=== PATIENT | female | born 1955 | race Caucasian/White ===

== ENCOUNTER 2016-08-06 22:11 | Emergency (ER) | payer MEDICARE, MEDICAID ==
[~2016-08-06] VITALS: Ht 154.9 cm; Wt 70.8 kg
[~2016-08-06 22:11] MED LIST: ARIP30TA PO; ASPI81TA2 PO; BACL10TA PO; BENZ1TAB5 PO; CETI10CA PO; CHLO200T2 PO; CLON0.5T PO; CLON0.5T3 PO; CYAN250012 PO; DEXT1DRO7 OP; DIPH25CA58 PO; DULO60CA6 PO; EZET10TA3 PO; FENO67CA PO; FLUT9.9S NS; FURO-68 PO; FURO80TA72 PO; GABA-586 PO; GLUC1TAB33 PO; HYDR-2762 PO; HYDR28OI2 TP; INSU100I17 SQ; INSU100V13 SQ; LACT1CAP2 PO; LINA145C PO; MAGN400O4 PO; MENT1ADH39 TP; MULT1CAP15 PO; NICO4GUM3 BC; NITR0.4T6 SL; NYST1POW2 PO; OMEG500C PO; POTA20TA82 PO; SENN1TAB7 PO; SIMV20TA PO; TOPI100T39 PO; TRAM50TA PO; TRAZ100T12 PO; ZIPR20CA2 PO; ZIPR80CA2 PO
[2016-08-06 23:32] LABS: BASO # 0.1 x10^3/uL (0.0-0.2); BASO % 1 % (0-3); EOS % 2 % (0-3); HEMATOCRIT 34.7 % (36.0-47.0); HEMOGLOBIN 11.7 g/dL (12.0-15.5); LYMPH # 2.9 x10^3/uL (1.0-4.8); LYMPH % 44 % (24-48); MEAN CORPUSCULAR HEMOGLOBIN 34 pg (25-35); MEAN CORPUSCULAR HGB CONC 34 g/dL (31-37); MEAN CORPUSCULAR VOLUME 101 fL (79-100); MONO % 7 % (0-9); NEUT % 46 % (31-73); PLATELET COUNT 173 x10^3/uL (140-400); RED BLOOD COUNT 3.44 x10^6/uL (3.50-5.40); RED CELL DISTRIBUTION WIDTH 13.1 % (11.5-14.5); WHITE BLOOD COUNT 6.6 x10^3/uL (4.0-11.0)
[2016-08-06 23:42] LABS: CALCIUM 9.6 mg/dL (8.5-10.1); CREATININE 1.1 mg/dL (0.6-1.0); GFR 50.3; POTASSIUM 4.3 mmol/L (3.5-5.1)
[2016-08-06 23:48] LABS: ALBUMIN 3.9 g/dL (3.4-5.0); TOTAL BILIRUBIN 0.5 mg/dL (0.2-1.0); TOTAL PROTEIN 7.7 g/dL (6.4-8.2)
--- NOTE | 2016-08-07 00:01 | RAD ---
INDICATION: Altered mental status COMPARISON: April 18, 2016 TECHNIQUE: Axial, noncontrast CT images obtained through the head. One or more of the following individualized dose reduction techniques were utilized for this examination: 1. Automated exposure control; 2. Adjustment of the mA and/or kV according to patient size; 3. Use of iterative reconstruction technique. FINDINGS: No acute intracranial process is identified, specifically no acute blood products, midline shift, mass effect or extra-axial fluid collections. There is a large area of low attenuation consistent with encephalomalacia with resulting ex vacuo dilatation of the right lateral ventricle re- demonstrated, consistent with previous right MCA distribution infarct. Basal ganglia mineralization is re- demonstrated. Otherwise, ventricles and sulci appear appropriate for patient's age. Basilar cisterns are maintained. The visualized paranasal sinuses are clear. Mastoid air cells are clear. No calvarial fracture is present. Overlying scalp is intact. IMPRESSION: No acute intracranial process. Re- demonstrated old right MCA distribution infarct. Electronically signed by: Penny Paris (Aug 06, 2016 23:59:59)
[2016-08-07 00:28] LABS: BILIRUBIN,URINE NEGATIVE (NEG); GLUCOSE,URINE NEGATIVE (NEG); NITRITE,URINE POSITIVE (NEG); PROTEIN,URINE NEGATIVE (NEG-TRACE); UROBILINOGEN,URINE 0.2 mg/dL (0.2 mg/dL)
[2016-08-07 00:33] LABS: BACTERIA,URINE MANY /HPF (0-FEW); RBC,URINE 0 /HPF (0-2); SQUAMOUS EPITHELIAL CELL,UR FEW /LPF
[2016-08-07 00:34] LABS: BARBITURATES NEG (NEG); BENZODIAZEPINES NEG (NEG); CANNABINOIDS NEG (NEG); COCAINE NEG (NEG); METHADONE NEG (NEG); OPIATES POS (NEG); PHENCYCLIDINE NEG (NEG)
[2016-08-07 00:35] LABS: ETHANOL, URINE NEG (NEG)
[2016-08-07] MEDS ORDERED: CEPHALEXIN 250 MG CAPSULE PO ONE (01:00)
[2016-08-07] MEDS ORDERED: CEPH-264 PO (01:46)
--- NOTE | 2016-08-07 02:10 | ED.ADGEN ---
Past Medical History Past Medical History: Anemia, Anxiety, CHF, Constipation, CVA, Depression, Diabetes-Type II, Hypertension, Schizophrenia Additional Past Medical Histor: CHRONIC PAIN SYNDROME , NEUROPATHY, LEFT SIDED PARALYSIS, Past Surgical History: No Surgical History Additional Information: 4 CIGARETTES A DAY Alcohol Use: Rarely Drug Use: None Adult General Chief Complaint Chief Complaint: ALTERED MENTAL STATUS HPI HPI Patient is a 61 year old woman, history of CHF, hypertension, COPD, schizophrenia, who presents to the emergency department via EMS with a complaint of chest pain that developed this morning after swallowing pills. Upon initial arrival, patient was very drowsy, report was given from EMS that the patient had been taking her pills early this morning, and had developed chest pain after taking pills. We did contact the nursing facility, as the patient was initially having difficulty giving us a history, and there was a concern for altered mental status. Patient is denying all complaints, but is falling asleep midsentence, and is unable to give history at this time. Vital signs are within normal limits on the monitor. Review of Systems Review of Systems Constitutional: Denies fever or chills. [] Eyes: Denies change in visual acuity. [] HENT: Denies nasal congestion or sore throat. [] Respiratory: Denies cough or shortness of breath. [] Cardiovascular: Denies chest pain or edema. [] GI: Denies abdominal pain, nausea, vomiting, bloody stools or diarrhea. [] : Denies dysuria. [] Musculoskeletal: Denies back pain or joint pain. [] Integument: Denies rash. [] Neurologic: Denies headache, focal weakness or sensory changes. [] Endocrine: Denies polyuria or polydipsia. [] Lymphatic: Denies swollen glands. [] Psychiatric: Denies depression or anxiety. [] Patient is denying all complaints, is a limited historian at this time, due to clinical condition. Current Medications Current Medications Current Medications Medications (Trade) Dose Ordered Sig/[place] Start Time Stop Time Status Last Admin Dose Admin Cephalexin HCl (Keflex) 500 mg 1X ONCE 08/07/16 01:00 08/07/16 01:01 DC 08/07/16 01:00 500 MG Allergies Allergies Allergies Coded Allergies Type Severity Reaction Last Updated Verified carbamazepine Allergy Intermediate 07/17/16 Yes diphtheria toxoid,fluid Allergy Intermediate 12/18/16 Yes Physical Exam Physical Exam Constitutional: Well developed, well nourished, no acute distress, non-toxic appearance. [] HENT: Normocephalic, atraumatic, bilateral external ears normal, oropharynx moist, no oral exudates, nose normal. [] Eyes: PERRLA, EOMI, conjunctiva normal, no discharge. [] Neck: Normal range of motion, no tenderness, supple, no stridor. [] Cardiovascular:Heart rate regular rhythm, no murmur, S1, S2, rubs or gallops. [] Lungs & Thorax: Bilateral breath sounds clear to auscultation, no wheezing, rhonchi, rales. No chest tenderness or crepitus. [] Abdomen: Bowel sounds normal, soft, no tenderness, no masses, no rebound, rigidity, no guarding, no pulsatile masses. [] Skin: Warm, dry, no erythema, no rash. [] Back: No tenderness, no CVA tenderness. [] Extremities: No tenderness, no cyanosis, no clubbing, ROM intact, no edema. [] Neurologic: Initial examination, patient was very drowsy, falling asleep midsentence, able to answer questions appropriately. On reevaluation, alert and oriented X 3, normal motor function, normal sensory function, no focal deficits noted. [] Psychologic: Affect normal, judgement normal, mood normal. [] Current Patient Data Vital Signs Vital Signs Date Time Temp Pulse Resp B/P Pulse Ox O2 Delivery O2 Flow Rate FiO2 08/06/16 22:15 98.3 76 15 91/52 94 Room Air 98.3 Lab Values Laboratory Tests Test 08/06/16 23:25 08/07/16 00:15 White Blood Count 6.6x10^3/uL (4.0-11.0) Red Blood Count 3.44x10^6/uL (3.50-5.40) L Hemoglobin 11.7g/dL (12.0-15.5) L Hematocrit 34.7% (36.0-47.0) L Mean Corpuscular Volume 101fL (79-100) H Mean Corpuscular Hemoglobin 34pg (25-35) Mean Corpuscular Hemoglobin Concent 34g/dL (31-37) Red Cell Distribution Width 13.1% (11.5-14.5) Platelet Count 173x10^3/uL (140-400) Neutrophils (%) (Auto) 46% (31-73) Lymphocytes (%) (Auto) 44% (24-48) Monocytes (%) (Auto) 7% (0-9) Eosinophils (%) (Auto) 2% (0-3) Basophils (%) (Auto) 1% (0-3) Neutrophils # (Auto) 3.0x10^3uL (1.8-7.7) Lymphocytes # (Auto) 2.9x10^3/uL (1.0-4.8) Monocytes # (Auto) 0.5x10^3/uL (0.0-1.1) Eosinophils # (Auto) 0.1x10^3/uL (0.0-0.7) Basophils # (Auto) 0.1x10^3/uL (0.0-0.2) Sodium Level 140mmol/L (136-145) Potassium Level 4.3mmol/L (3.5-5.1) Chloride Level 103mmol/L (98-107) Carbon Dioxide Level 29mmol/L (21-32) Anion Gap 8 (6-14) Blood Urea Nitrogen 17mg/dL (7-20) Creatinine 1.1mg/dL (0.6-1.0) H Estimated GFR (Cockcroft-Gault) 50.3 BUN/Creatinine Ratio 15 (6-20) Glucose Level 162mg/dL (70-99) H Calcium Level 9.6mg/dL (8.5-10.1) Total Bilirubin 0.5mg/dL (0.2-1.0) Aspartate Amino Transferase (AST) 60U/L (15-37) H Alanine Aminotransferase (ALT) 56U/L (14-59) Alkaline Phosphatase 76U/L (46-116) Troponin I Quantitative < 0.017ng/mL (0.000-0.055) NZ-Jxc-Y-Type Natriuretic Peptide 18pg/mL (0-124) Total Protein 7.7g/dL (6.4-8.2) Albumin 3.9g/dL (3.4-5.0) Albumin/Globulin Ratio 1.0 (1.0-1.7) Urine Collection Type U cath Urine Color Yellow Urine Clarity Clear Urine pH 6.0 Urine Specific [place] 1.010 Urine Protein Negativemg/dL (NEG-TRACE) Urine Glucose (UA) Negativemg/dL (NEG) Urine Ketones (Stick) Negativemg/dL (NEG) Urine Blood Negative (NEG) Urine Nitrite Positive (NEG) Urine Bilirubin Negative (NEG) Urine Urobilinogen Dipstick 0.2mg/dL (0.2 mg/dL) Urine Leukocyte Esterase Moderate (NEG) Urine RBC 0/HPF (0-2) Urine WBC 5-10/HPF (0-4) Urine Squamous Epithelial Cells Few/LPF Urine Bacteria Many/HPF (0-FEW) Urine Mucus Slight/LPF Urine Opiates Screen Pos (NEG) Urine Methadone Screen Neg (NEG) Urine Barbiturates Neg (NEG) Urine Phencyclidine Screen Neg (NEG) Urine Amphetamine/Methamphetamine Neg (NEG) Urine Benzodiazepines Screen Neg (NEG) Urine Cocaine Screen Neg (NEG) Urine Cannabinoids Screen Neg (NEG) Urine Ethyl Alcohol Neg (NEG) Laboratory Tests 08/06/16 23:25 Laboratory Tests 08/06/16 23:25 EKG EKG EC19/09/49: Sinus rhythm, heart rate 71 beats minute, upright axis, QTC of 477 , [place] 162, QRS of 86, no ST elevations or depressions, moderate baseline artifact noted. As interpreted by me. [] Radiology/Procedures Radiology/Procedures Chest x-ray: One view: Normal cardiopulmonary silhouette, no infiltrates or effusions, no soft tissue or bone normalities identified. As interpreted by me. Course & Med Decision Making Course & Med Decision Making Pertinent Labs and Imaging studies reviewed. (See chart for details) Due to concern of possible altered mental status, as the report from the nursing facility was unclear, as we are attempting to reach the facility to gather more information, CT of the head was obtained to rule out possible acute change in patient's mentation. We did reach the patient's nurse it was reported that point that the patient had been given her nighttime oxycodone, Klonopin, and baclofen shortly before arrival in the ED, which was likely the cause of her drowsiness. Upon return from CT, patient is much more awake and alert, she is complaining of burning with urination that began yesterday, some frequency and urgency, and states that she did indeed swallow a pill this morning, and when she was drinking the water with a pill "it was like a bubble was in my chest, and it really hurt". She has had some soreness since this time, especially with deep inspiration, but is denying any associated symptoms. Patient noted to have urinary tract infection in the ED, consistent with her symptoms, was given a first dose of Keflex in the ED which she swallowed without issue. Repeat x-ray was obtained, as initial x-rays performed during her initial drowsy state, patient is now sitting upright, is in a 4, and fully cooperative with examination and history. I did contact Junie Thomas, the nurse practitioner on-call for Dr. Dowling, the patient's vision at the nursing facility. I relayed the history and presentation for the patient, and that at this time I believe the patient would be very appropriate for return to the facility, and I will send her with a prescription for Keflex. Ms. he agreed, she stated that Dr. Dowling with see the patient at the nursing facility in the next day or 2, and the patient will return to the ED for evaluation if concerning symptoms develop. Patient is agreeable to this plan, and is anxious discharged home, ambulance transport arranged for patient. Dragon Disclaimer Dragon Disclaimer This electronic medical record was generated, in whole or in part, using a voice recognition dictation system. Departure Impression: Primary Impression: Urinary tract infection Disposition: 01 HOME, SELF-CARE Condition: IMPROVED Scripts Cephalexin (Keflex)500 Mg Capsule1 Cap PO BID #10 CAP Prov:GABRIEL PHELAN DO 08/07/16 Problem Qualifiers Primary Impression: Urinary tract infection Urinary tract infection type: acute cystitis Hematuria presence: without hematuria Qualified Code: N30.00 - Acute cystitis without hematuria GABRIEL PHELAN DO Aug 07, 2016 02:10
[2016-08-07 02:20] VITALS: BP 95/53
--- NOTE | 2016-08-07 08:17 | RAD ---
AP portable chest. History: Chest pain, hypertension, CHF, diabetes AP view was taken of the chest. Heart is upper normal in size. There is linear atelectasis in both lung bases. There is no effusion. There is mild interstitial lung disease from mild fibrosis or acute interstitial infiltrates. There's been worsening in the pattern compared to March 2016. Impression: 1. Poor inspiration. 2. Linear atelectasis or infiltrate in both lower lobes. 3. Interstitial lung disease with mild worsening compared to the prior study.
--- NOTE | 2016-08-07 08:29 | EKG ---
[facility] [address] [place] [address] Test Date: 2016-08-06 Test Time: 22:50:36 Pat Name: MADDI BO Department: Room: Gender: F Corrections Nurse: : [id number] Requested By: Kallie BO Order Number: [id number] Reading MD: Christine Garcia Measurements Intervals [place] Rate: 71 P: 22 LA: 162 QRS: 28 QRSD: 86 T: 42 QT: 434 QTc: 477 Interpretive Statements SINUS RHYTHM NORMAL EKG Electronically Signed On 08-10-2016 23:18:24 HISTORIOGRAPHER by Christine Garcia
--- NOTE | 2016-08-09 17:58 | VNOTE ---
CALL BACK NOTE CALL BACK Microbiology 08/07/16 Urine Culture - Final, Complete 08/07/16 Urine Culture Result 1 (TED) - Final, Complete 08/07/16 Antimicrobic Susceptibility - Final, Complete The patient's urine culture was positive for greater than 100,000 CFU per mL of enterococcus faecalis. She was initially prescribed Keflex for her UTI, however this is not effective given the organism grown. The patient is currently a resident at [facility]. I spoke with the nurse caring for the patient, Ying. The culture result was faxed to the facility at [phone]. The attending physician at the facility will make the appropriate antibiotic change. GABRIEL PATEL Aug 09, 2016 17:58
== END 2016-08-07 02:40 | disposition home or self-care (01) ==
LOC: ER 22:11
DX: N39.0 Urinary tract infection, site not specified (principal); E11.40 Type 2 diabetes mellitus with diabetic neuropathy, unspecified; F20.9 Schizophrenia, unspecified; F41.9 Anxiety disorder, unspecified; I11.0 Hypertensive heart disease with heart failure; I50.9 Heart failure, unspecified; G89.4 Chronic pain syndrome; J84.9 Interstitial pulmonary disease, unspecified; R41.82 Altered mental status, unspecified; J44.9 Chronic obstructive pulmonary disease, unspecified; Z86.73 Personal history of transient ischemic attack (TIA), and cerebral infarction without residual deficits; F17.210 Nicotine dependence, cigarettes, uncomplicated; Z88.8 Allergy status to other drugs, medicaments and biological substances
CPT/HCPCS: 36415; 70450; 71010; 80053; 81001; 83880; 84484; 85027; 87086; 93005; 99285; G0481

== ENCOUNTER 2017-11-03 15:32 | Emergency (ER) | payer MEDICARE, MEDICAID ==
[2017-11-03 16:29] LABS: ADD MAN DIFF? NO
[2017-11-03 16:31] LABS: BASO % 1 % (0-3); EOS # 0.1 x10^3/uL (0.0-0.7); EOS % 2 % (0-3); HEMATOCRIT 35.1 % (36.0-47.0); HEMOGLOBIN 11.7 g/dL (12.0-15.5); LYMPH # 2.8 x10^3/uL (1.0-4.8); LYMPH % 49 % (24-48); MEAN CORPUSCULAR HEMOGLOBIN 34 pg (25-35); MEAN CORPUSCULAR HGB CONC 33 g/dL (31-37); MEAN CORPUSCULAR VOLUME 101 fL (79-100); MONO # 0.5 x10^3/uL (0.0-1.1); MONO % 8 % (0-9); NEUT # 2.3 x10^3uL (1.8-7.7); NEUT % 40 % (31-73); PLATELET COUNT 161 x10^3/uL (140-400); RED BLOOD COUNT 3.48 x10^6/uL (3.50-5.40); RED CELL DISTRIBUTION WIDTH 13.3 % (11.5-14.5); WHITE BLOOD COUNT 5.7 x10^3/uL (4.0-11.0)
[2017-11-03 16:32] LABS: BILIRUBIN,URINE NEGATIVE (NEG); CLARITY,URINE CLEAR; COLOR,URINE YELLOW; GLUCOSE,URINE NEGATIVE (NEG); NITRITE,URINE POSITIVE (NEG); PH,URINE 5.5; PROTEIN,URINE NEGATIVE (NEG-TRACE); UROBILINOGEN,URINE 0.2 mg/dL (0.2 mg/dL)
[2017-11-03 16:44] LABS: ANION GAP 10 (6-14); BLOOD UREA NITROGEN 17 mg/dL (7-20); BUN/CREATININE RATIO 15 (6-20); CALCIUM 8.8 mg/dL (8.5-10.1); CARBON DIOXIDE 30 mmol/L (21-32); CHLORIDE 103 mmol/L (98-107); CREATININE 1.1 mg/dL (0.6-1.0); GFR 50.2; GLUCOSE 225 mg/dL (70-99); POTASSIUM 3.5 mmol/L (3.5-5.1); SODIUM 143 mmol/L (136-145)
[2017-11-03 16:47] LABS: BACTERIA,URINE MANY /HPF (0-FEW); RBC,URINE 0 /HPF (0-2); SQUAMOUS EPITHELIAL CELL,UR FEW /LPF
[2017-11-03 16:48] LABS: HYALINE CASTS, URINE OCCASIONAL /HPF
[2017-11-03 16:49] LABS: ALBUMIN 3.7 g/dL (3.4-5.0); ALBUMIN/GLOBULIN RATIO 0.9 (1.0-1.7); ALK PHOS 114 U/L (46-116); ALT (SGPT) 51 U/L (14-59); AST (SGOT) 80 U/L (15-37); TOTAL BILIRUBIN 0.5 mg/dL (0.2-1.0); TOTAL PROTEIN 7.8 g/dL (6.4-8.2)
[2017-11-03 16:50] LABS: TROPONINI < 0.017 ng/mL (0.000-0.055)
[2017-11-03] MEDS: CEPHALEXIN 250 MG CAPSULE. PO (20:06)
== END 2017-11-03 21:07 | disposition home or self-care (01) ==
LOC: ER 15:32
DX: N39.0 Urinary tract infection, site not specified (principal); M25.512 Pain in left shoulder; M25.572 Pain in left ankle and joints of left foot; M79.605 Pain in left leg; M54.2 Cervicalgia; M25.552 Pain in left hip; I11.0 Hypertensive heart disease with heart failure; I50.9 Heart failure, unspecified; E11.40 Type 2 diabetes mellitus with diabetic neuropathy, unspecified; F20.9 Schizophrenia, unspecified; E78.5 Hyperlipidemia, unspecified; G89.29 Other chronic pain; Z86.73 Personal history of transient ischemic attack (TIA), and cerebral infarction without residual deficits; Z88.8 Allergy status to other drugs, medicaments and biological substances; W18.39XA Other fall on same level, initial encounter; Y93.89 Activity, other specified; Y99.8 Other external cause status; Y92.89 Other specified places as the place of occurrence of the external cause
CPT/HCPCS: 36415; 51701; 70450; 71045; 72125; 73030; 73521; 73562; 73590; 73610; 80053; 81001; 84484; 85025; 87086; 87186; 93005; 99285-25

== ENCOUNTER 2017-11-25 18:04 | Inpatient (IN) | payer MEDICARE, MEDICAID ==
[2017-11-25 18:39] LABS: ADD MAN DIFF? NO
[2017-11-25 18:45] LABS: BASO % 1 % (0-3); BILIRUBIN,URINE NEGATIVE (NEG); CLARITY,URINE CLEAR; COLOR,URINE YELLOW; EOS # 0.2 x10^3/uL (0.0-0.7); EOS % 2 % (0-3); GLUCOSE,URINE NEGATIVE (NEG); HEMATOCRIT 37.2 % (36.0-47.0); HEMOGLOBIN 12.7 g/dL (12.0-15.5); LYMPH # 3.8 x10^3/uL (1.0-4.8); LYMPH % 56 % (24-48); MEAN CORPUSCULAR HEMOGLOBIN 35 pg (25-35); MEAN CORPUSCULAR HGB CONC 34 g/dL (31-37); MEAN CORPUSCULAR VOLUME 101 fL (79-100); MONO # 0.5 x10^3/uL (0.0-1.1); MONO % 8 % (0-9); NEUT # 2.3 x10^3uL (1.8-7.7); NEUT % 34 % (31-73); NITRITE,URINE POSITIVE (NEG); PLATELET COUNT 204 x10^3/uL (140-400); PROTEIN,URINE NEGATIVE (NEG-TRACE); RED BLOOD COUNT 3.68 x10^6/uL (3.50-5.40); RED CELL DISTRIBUTION WIDTH 13.2 % (11.5-14.5); UROBILINOGEN,URINE 0.2 mg/dL (0.2 mg/dL); WHITE BLOOD COUNT 6.9 x10^3/uL (4.0-11.0)
[2017-11-25 18:50] LABS: AMPHETAMINE/METHAMPHETAMINE NEG (NEG); BARBITURATES NEG (NEG); BENZODIAZEPINES NEG (NEG); CANNABINOIDS NEG (NEG); COCAINE NEG (NEG); ETHANOL, URINE NEG (NEG); METHADONE NEG (NEG); OPIATES POS (NEG); PHENCYCLIDINE NEG (NEG)
[2017-11-25 18:55] LABS: INR 1.1 (0.8-1.1); PROTHROMBIN TIME PATIENT 13.7 SEC (11.7-14.0)
[2017-11-25 18:56] LABS: PARTIAL THROMBOPLASTIN TIME 72 SEC (24-38)
[2017-11-25 18:58] LABS: ANION GAP 10 (6-14); BLOOD UREA NITROGEN 23 mg/dL (7-20); BUN/CREATININE RATIO 18 (6-20); CALCIUM 9.2 mg/dL (8.5-10.1); CARBON DIOXIDE 29 mmol/L (21-32); CHLORIDE 102 mmol/L (98-107); CREATININE 1.3 mg/dL (0.6-1.0); GFR 41.4; GLUCOSE 155 mg/dL (70-99); POTASSIUM 4.3 mmol/L (3.5-5.1); SODIUM 141 mmol/L (136-145)
[2017-11-25 19:00] LABS: ALBUMIN 4.1 g/dL (3.4-5.0); ALBUMIN/GLOBULIN RATIO 0.9 (1.0-1.7); ALK PHOS 99 U/L (46-116); ALT (SGPT) 63 U/L (14-59); AST (SGOT) 99 U/L (15-37); TOTAL BILIRUBIN 0.6 mg/dL (0.2-1.0); TOTAL PROTEIN 8.8 g/dL (6.4-8.2)
[2017-11-25 19:10] LABS: BACTERIA,URINE MANY /HPF (0-FEW); RBC,URINE 0 /HPF (0-2)
[2017-11-25 19:11] LABS: HYALINE CASTS, URINE MODERATE /HPF; SQUAMOUS EPITHELIAL CELL,UR FEW /LPF
[2017-11-25 19:14] LABS: CKMB MASS < 0.5 ng/mL (0.0-3.6); CREATINE KINASE 21 U/L (26-192)
[2017-11-25] MEDS ORDERED: levOFLOXacin PER PHARMACY. MC (22:45)
[2017-11-25] MEDS: IV NORMAL SALINE 500ML BAG 250 ML IV (23:00)
[2017-11-26] MEDS ORDERED: MAGNESIUM HYDROXIDE 2,400 MG/30 ML ORAL.SUSP. PO (16:30)
[2017-11-26] MEDS ORDERED: NITROGLYCERIN SUBLINGUAL 0.4 MG BOTTLE OF 25. SL (16:30)
[2017-11-26] MEDS ORDERED: traZODone 100 MG TABLET. PO (16:30)
[2017-11-26] MEDS ORDERED: FLUTICASONE 50MCG/NASAL SPRAY 16GM BOTTLE. NS (17:00)
[2017-11-26 17:25] LABS: POC GLUCOSE 130 mg/dL (70-99)
[2017-11-26] MEDS: clonazePAM 0.5 MG TABLET PO ×2 (18:06→20:14)
[2017-11-26] MEDS: TOPIRAMATE 100 MG TABLET. PO ×2 (18:06→20:14)
[2017-11-26] MEDS: MULTIVITAMIN with MINERAL TABLET. PO (18:06)
[2017-11-26] MEDS: OMEGA-3 FATTY ACIDS/FISH OIL 1,000 MG CAPSULE. PO (18:06)
[2017-11-26] MEDS: CETIRIZINE HCL 10 MG TABLET. PO (18:06)
[2017-11-26] MEDS: LINACLOTIDE 145 MCG CAPSULE. PO (18:07)
[2017-11-26] MEDS: EZETIMIBE 10 MG TABLET. PO (18:07)
[2017-11-26] MEDS: FUROSEMIDE 40 MG TABLET. PO (18:07)
[2017-11-26] MEDS: BACLOFEN 10 MG TABLET. PO ×2 (18:08→20:14)
[2017-11-26] MEDS: DULoxetine HCL 30 MG CAPSULE.DR PO (18:08)
[2017-11-26] MEDS: POTASSIUM CHLORIDE 20 MEQ TABLET.ER. PO ×2 (18:09→20:14)
[2017-11-26] MEDS: ASPIRIN CHEWABLE 81 MG TABLET. PO (18:10)
[2017-11-26] MEDS: ARIPiprazole 5 MG TABLET PO (18:10)
[2017-11-26] MEDS: GABAPENTIN 300 MG CAPSULE. PO ×2 (18:11→20:13)
[2017-11-26] MEDS: LACTOBACILLUS RHAMNOSUS GG 1 CAPSULE. PO ×2 (18:11→20:14)
[2017-11-26] MEDS: SIMVASTATIN 20 MG TABLET PO (20:14)
[2017-11-26] MEDS: traMADol 50 MG TABLET PO (20:14)
[2017-11-26] MEDS: HYDROcodone/APAP 7.5/325MG 1 TAB TABLET PO (20:32)
[2017-11-26] MEDS: INSULIN GLARGINE 300 UNITS/3 ML INSULN.PEN. SQ (21:00)
[2017-11-26] MEDS ORDERED: LACTOBACILLUS RHAMNOSUS GG 1 CAPSULE. PO (21:00)
[2017-11-27] MEDS: GABAPENTIN 300 MG CAPSULE. PO ×3 (08:39→22:08)
[2017-11-27] MEDS: DULoxetine HCL 30 MG CAPSULE.DR PO (08:40)
[2017-11-27] MEDS: FENOFIBRATE 54 MG TABLET. PO (08:40)
[2017-11-27] MEDS: ARIPiprazole 5 MG TABLET PO (08:40)
[2017-11-27] MEDS: EZETIMIBE 10 MG TABLET. PO (08:40)
[2017-11-27] MEDS: POTASSIUM CHLORIDE 20 MEQ TABLET.ER. PO ×3 (08:40→22:09)
[2017-11-27] MEDS: clonazePAM 0.5 MG TABLET PO ×2 (08:40→22:07)
[2017-11-27] MEDS: MULTIVITAMIN with MINERAL TABLET. PO (08:41)
[2017-11-27] MEDS: LINACLOTIDE 145 MCG CAPSULE. PO (08:41)
[2017-11-27] MEDS: ASPIRIN CHEWABLE 81 MG TABLET. PO (08:41)
[2017-11-27] MEDS: TOPIRAMATE 100 MG TABLET. PO ×2 (08:41→22:08)
[2017-11-27] MEDS: BENZTROPINE MESYLATE 1 MG TABLET. PO (08:41)
[2017-11-27] MEDS: FUROSEMIDE 80 MG TABLET. PO (08:41)
[2017-11-27] MEDS: LACTOBACILLUS RHAMNOSUS GG 1 CAPSULE. PO ×3 (08:41→22:08)
[2017-11-27] MEDS: CETIRIZINE HCL 10 MG TABLET. PO (08:41)
[2017-11-27] MEDS: BACLOFEN 10 MG TABLET. PO ×3 (08:41→22:08)
[2017-11-27] MEDS: OMEGA-3 FATTY ACIDS/FISH OIL 1,000 MG CAPSULE. PO (08:41)
[2017-11-27] MEDS: FLUTICASONE 50MCG/NASAL SPRAY 16GM BOTTLE. NS (09:00)
[2017-11-27] MEDS: NICOTINE 21MG PATCH. TD (09:36)
[2017-11-27] MEDS: FUROSEMIDE 40 MG TABLET. PO (16:36)
[2017-11-27] MEDS: traMADol 50 MG TABLET PO (22:07)
[2017-11-27] MEDS: SIMVASTATIN 20 MG TABLET PO (22:07)
[2017-11-27 22:15] LABS: POC GLUCOSE 140 mg/dL (70-99)
[2017-11-27] MEDS: INSULIN GLARGINE 300 UNITS/3 ML INSULN.PEN. SQ (22:30)
[2017-11-28] MEDS: FLUTICASONE 50MCG/NASAL SPRAY 16GM BOTTLE. NS (08:29)
[2017-11-28] MEDS: DULoxetine HCL 30 MG CAPSULE.DR PO (08:29)
[2017-11-28] MEDS: ASPIRIN CHEWABLE 81 MG TABLET. PO (08:30)
[2017-11-28] MEDS: BACLOFEN 10 MG TABLET. PO ×2 (08:30→15:31)
[2017-11-28] MEDS: FUROSEMIDE 80 MG TABLET. PO (08:30)
[2017-11-28] MEDS: TOPIRAMATE 100 MG TABLET. PO (08:32)
[2017-11-28] MEDS: MULTIVITAMIN with MINERAL TABLET. PO (08:32)
[2017-11-28] MEDS: POTASSIUM CHLORIDE 20 MEQ TABLET.ER. PO ×2 (08:32→15:31)
[2017-11-28] MEDS: LACTOBACILLUS RHAMNOSUS GG 1 CAPSULE. PO ×2 (08:33→15:31)
[2017-11-28] MEDS: ARIPiprazole 5 MG TABLET PO (08:33)
[2017-11-28] MEDS: GABAPENTIN 300 MG CAPSULE. PO ×2 (08:33→15:31)
[2017-11-28] MEDS: LINACLOTIDE 145 MCG CAPSULE. PO (08:34)
[2017-11-28] MEDS: clonazePAM 0.5 MG TABLET PO (08:34)
[2017-11-28] MEDS: FENOFIBRATE 54 MG TABLET. PO (08:35)
[2017-11-28] MEDS: HYDROcodone/APAP 7.5/325MG 1 TAB TABLET PO ×2 (08:35→15:32)
[2017-11-28] MEDS: BENZTROPINE MESYLATE 1 MG TABLET. PO (08:35)
[2017-11-28] MEDS: OMEGA-3 FATTY ACIDS/FISH OIL 1,000 MG CAPSULE. PO (08:35)
[2017-11-28] MEDS: EZETIMIBE 10 MG TABLET. PO (08:36)
[2017-11-28] MEDS: CETIRIZINE HCL 10 MG TABLET. PO (08:37)
[2017-11-28] MEDS: NICOTINE 21MG PATCH. TD (08:53)
[2017-11-28 09:17] LABS: ANION GAP 8 (6-14); BLOOD UREA NITROGEN 18 mg/dL (7-20); CALCIUM 9.8 mg/dL (8.5-10.1); CARBON DIOXIDE 25 mmol/L (21-32); CHLORIDE 105 mmol/L (98-107); CREATININE 1.1 mg/dL (0.6-1.0); GFR 50.2; GLUCOSE 166 mg/dL (70-99); SODIUM 138 mmol/L (136-145)
== END 2017-11-28 16:16 | disposition home or self-care (01) | DRG 871 ==
LOC: ER 18:04 → 4 NORTH 20:22
DX: A41.9 Sepsis, unspecified organism (principal); G93.41 Metabolic encephalopathy; G62.9 Polyneuropathy, unspecified; E11.40 Type 2 diabetes mellitus with diabetic neuropathy, unspecified; F20.9 Schizophrenia, unspecified; I11.0 Hypertensive heart disease with heart failure; I50.9 Heart failure, unspecified; N39.0 Urinary tract infection, site not specified; G81.94 Hemiplegia, unspecified affecting left nondominant side; D64.9 Anemia, unspecified; E86.0 Dehydration; F32.9 Major depressive disorder, single episode, unspecified; G89.4 Chronic pain syndrome; I25.10 Atherosclerotic heart disease of native coronary artery without angina pectoris; K59.00 Constipation, unspecified; Z82.49 Family history of ischemic heart disease and other diseases of the circulatory system; Z86.73 Personal history of transient ischemic attack (TIA), and cerebral infarction without residual deficits; F41.9 Anxiety disorder, unspecified; E53.8 Deficiency of other specified B group vitamins; Z88.7 Allergy status to serum and vaccine; Z88.8 Allergy status to other drugs, medicaments and biological substances; M19.90 Unspecified osteoarthritis, unspecified site; Z98.49 Cataract extraction status, unspecified eye
CPT/HCPCS: 36415; 70450; 70551; 80048; 80053; 80307; 81001; 82553; 82962; 85025; 85610; 85730; 87086; 96365; 97162-GP; 97166-GO; 99285; 99285-25; J1815; J1956; J7040